=== PATIENT | male | born 1990 | race Caucasian/White ===

== ENCOUNTER 2017-04-24 11:33 | Emergency (ER) | payer BC ==
--- NOTE | 2017-04-24 12:20 | Emergency Department Report ---
Chief Complaint: Headache Stated Complaint: LIGHTHEADED/NAUSEA Time Seen by Provider: 04/24/17 12:18 - HPI History of Present Illness: PT c/o headache since yesterday. PT states today he was at work and he felt lightheaded. - ROS Review of Systems: + nausea - fever - Exam Physical Exam: PT is alert and appropriate in triage gcs 15 MSE screening note: Focused history and physical exam performed. Due to findings the following was ordered: labs ED Disposition for MSE Condition: Stable
[2017-04-24 12:22] VITALS: BP 141/66
--- NOTE | 2017-04-24 12:55 | Cat Scan Report ---
CT HEAD WITHOUT CONTRAST INDICATION: Headache, lightheadedness. COMPARISON: None similar at this institution. FINDINGS: Noncontrast head CT demonstrates normal ventricles and sulci without acute or recent infarct, hemorrhage, mass effect or midline shift. No abnormal extra-axial fluid collections. Posterior fossa structures and basilar cisterns appear within normal limits. Approximately 1 cm right sphenoid sinus mucous retention cyst laterally partially imaged. Approximately 0.7 cm left frontoethmoid mucus retention cyst as well. Clear remainder imaged paranasal sinuses and mastoid air cells. Intact calvarium. Normal overlying scalp soft tissues. CONCLUSION: No acute intracranial CT abnormality, as described. Thank you for the opportunity to participate in this patient's care.
[2017-04-24 12:57] LABS: Basophils % (Auto) 1.2 % (0.0-1.8); Eosinophils % (Auto) 4.8 % (0.0-4.3); Hematocrit 42.4 % (35.5-45.6); Hemoglobin 14.3 gm/dl (11.8-15.2); Mean Corpuscular HGB Conc 34 % (32-34); Mean Corpuscular Hemoglobin 30 pg (28-32); Mean Corpuscular Volume 88 fl (84-94); Platelet Count 240 K/mm3 (140-440); Red Blood Count 4.82 M/mm3 (3.65-5.03); Red Cell Distribution Width 13.6 % (13.2-15.2); White Blood Count 4.6 K/mm3 (4.5-11.0)
[2017-04-24 13:16] LABS: Alanine Aminotransferase 18 units/L (7-56); Albumin 4.2 g/dL (3.9-5); Albumin/Globulin Ratio 1.4 %; Alkaline Phosphatase 57 units/L (35-129); Anion Gap 16 mmol/L; BUN/Creatinine Ratio 8.46; Blood Urea Nitrogen 11 mg/dL (9-20); Carbon Dioxide 26 mmol/L (22-30); Chloride 100.1 mmol/L (98-107); Creatine Kinase 831 units/L (55-170); Glucose 86 mg/dL (75-100); Potassium 4.4 mmol/L (3.6-5.0); Sodium 138 mmol/L (137-145); Total Protein 7.3 g/dL (6.3-8.2)
--- NOTE | 2017-04-24 13:51 | Emergency Department Report ---
ED Headache HPI - General Chief Complaint: Nausea/Vomiting/Diarrhea Stated Complaint: LIGHTHEADED/NAUSEA Time Seen by Provider: 04/24/17 12:18 Source: patient Exam Limitations: no limitations - History of Present Illness Initial Comments: Patient reports lightheaded, nausea and headache that started two days ago Timing/Duration: constant Quality: moderate Head Injury Location: frontal Recent Head Trauma: other (none) Modifying Factors: improves with: rest. worse with: exposure to light, medication, movement Associated Symptoms: nausea/vomiting. denies: confusion, fatigue, facial pain, fever/chills, flushing, loss of consciousness, nasal congestion, nasal drainage , numbness in legs/feet, rash, seizures, sinus infection, stiff neck, vision changes, weakness Allergies/Adverse Reactions: Allergies No Known Allergies Allergy (Unverified 04/24/17 12:18) Home Medications: Ambulatory Orders Fluticasone [Flonase] 1 spray NS QDAY #1 bottle 04/24/17 Ibuprofen [Motrin 600 MG tab] 600 mg PO Q8H PRN #30 tablet 04/24/17 Loratadine [Claritin] 10 mg PO DAILY #15 tablet 04/24/17 ED Review of Systems ROS: Stated complaint: LIGHTHEADED/NAUSEA Other details as noted in HPI Constitutional: denies: chills, diaphoresis, fever, malaise, weakness Eyes: denies: eye pain, eye discharge ENT: denies: ear pain, throat pain, dental pain Respiratory: denies: cough, orthopnea, shortness of breath, SOB with exertion, SOB at rest, stridor, wheezing Cardiovascular: denies: chest pain, palpitations, dyspnea on exertion, orthopnea , edema, syncope, paroxysmal nocturnal dyspnea Gastrointestinal: nausea. denies: abdominal pain, vomiting, diarrhea, constipation Genitourinary: denies: urgency, dysuria Musculoskeletal: denies: back pain, joint swelling, arthralgia Skin: denies: rash, lesions Neurological: headache. denies: weakness, numbness, paresthesias, confusion Psychiatric: denies: anxiety, depression Hematological/Lymphatic: denies: easy bleeding, easy bruising, swollen glands ED Past Medical Hx - Past Medical History Previous Medical History?: No - Surgical History Past Surgical History?: No - Social History Smoking Status: Never Smoker Substance Use Type: None - Medications Home Medications: Home Medications Medication Instructions Recorded Confirmed Last Taken Type Fluticasone [Flonase] 1 spray NS QDAY #1 bottle 04/24/17 Unknown Rx Ibuprofen [Motrin 600 MG tab] 600 mg PO Q8H PRN #30 tablet 04/24/17 Unknown Rx Loratadine [Claritin] 10 mg PO DAILY #15 tablet 04/24/17 Unknown Rx ED Physical Exam - General Limitations: No Limitations General appearance: alert, in no apparent distress - Head Head exam: Present: atraumatic, normocephalic, normal inspection - Eye Eye exam: Present: normal appearance, PERRL, EOMI Pupils: Present: normal accommodation - ENT ENT exam: Present: normal exam, normal orophraynx, mucous membranes moist, TM's normal bilaterally, normal external ear exam, other (nasal turbinates pale and boggy). Absent: mucous membranes dry - Neck Neck exam: Present: normal inspection, full ROM. Absent: tenderness, meningismus, lymphadenopathy, thyromegaly - Respiratory Respiratory exam: Present: normal lung sounds bilaterally. Absent: respiratory distress, wheezes, rales, rhonchi, stridor, chest wall tenderness, accessory muscle use, decreased breath sounds, prolonged expiratory - Cardiovascular Cardiovascular Exam: Present: regular rate, normal rhythm, normal heart sounds. Absent: systolic murmur, diastolic murmur, rubs, gallop - GI/Abdominal GI/Abdominal exam: Present: soft, normal bowel sounds. Absent: distended, tenderness, guarding, rebound, rigid - Extremities Exam Extremities exam: Present: normal inspection, full ROM, normal capillary refill. Absent: tenderness, pedal edema, joint swelling, calf tenderness - Back Exam Back exam: Present: normal inspection, full ROM. Absent: CVA tenderness (R), CVA tenderness (L) - Neurological Exam Neurological exam: Present: alert, oriented X3, CN II-XII intact, normal gait, reflexes normal. Absent: motor sensory deficit - Psychiatric Psychiatric exam: Present: normal affect, normal mood. Absent: depressed, agitated - Skin Skin exam: Present: warm, dry, intact, normal color. Absent: rash ED Course Vital Signs 04/24/17 12:19 Temperature 98.7 F Pulse Rate 74 Respiratory 16 Rate Blood Pressure 141/66 O2 Sat by Pulse 100 Oximetry - Reevaluation(s) Reevaluation #1: 04/24/17 13:48 laboratory and radiology studies ordered ED Medical Decision Making - Lab Data Result diagrams: 04/24/17 12:40 04/24/17 12:40 Lab Results 04/24/17 04/24/17 04/24/17 Range/Units 12:40 12:40 12:40 WBC 4.6 (4.5-11.0) K/mm3 RBC 4.82 (3.65-5.03) M/mm3 Hgb 14.3 (11.8-15.2) gm/dl Hct 42.4 (35.5-45.6) % MCV 88 (84-94) fl MCH 30 (28-32) pg MCHC 34 (32-34) % RDW 13.6 (13.2-15.2) % Plt Count 240 (140-440) K/mm3 Lymph % (Auto) 37.6 H (13.4-35.0) % [place] % (Auto) 8.9 H (0.0-7.3) % Eos % (Auto) 4.8 H (0.0-4.3) % Baso % (Auto) 1.2 (0.0-1.8) % Lymph # 1.7 (1.2-5.4) K/mm3 [place] # 0.4 (0.0-0.8) K/mm3 Eos # 0.2 (0.0-0.4) K/mm3 Baso # 0.1 (0.0-0.1) K/mm3 Seg Neutrophils % 47.5 (40.0-70.0) % Seg Neutrophils # 2.2 (1.8-7.7) K/mm3 Sodium 138 (137-145) mmol/L Potassium 4.4 (3.6-5.0) mmol/L Chloride 100.1 (98-107) mmol/L Carbon Dioxide 26 (22-30) mmol/L Anion Gap 16 mmol/L BUN 11 (9-20) mg/dL Creatinine 1.3 (0.8-1.5) mg/dL Estimated GFR > 60 ml/min BUN/Creatinine Ratio 8.46 % Glucose 86 (75-100) mg/dL Calcium 9.0 (8.4-10.2) mg/dL Magnesium 1.90 (1.7-2.3) mg/dL Total Bilirubin 0.40 (0.1-1.2) mg/dL AST 32 (5-40) units/L ALT 18 (7-56) units/L Alkaline Phosphatase 57 (35-129) units/L Total Creatine Kinase 831 H (55-170) units/L Total Protein 7.3 (6.3-8.2) g/dL Albumin 4.2 (3.9-5) g/dL Albumin/Globulin Ratio 1.4 % Vital Signs 04/24/17 12:19 Temperature 98.7 F Pulse Rate 74 Respiratory 16 Rate Blood Pressure 141/66 O2 Sat by Pulse 100 Oximetry - Radiology Data Radiology results: image reviewed CT HEAD WITHOUT CONTRAST INDICATION: Headache, lightheadedness. COMPARISON: None similar at this institution. FINDINGS: Noncontrast head CT demonstrates normal ventricles and sulci without acute or recent infarct, hemorrhage, mass effect or midline shift. No abnormal extra-axial fluid collections. Posterior fossa structures and basilar cisterns appear within normal limits. Approximately 1 cm right sphenoid sinus mucous retention cyst laterally partially imaged. Approximately 0.7 cm left frontoethmoid mucus retention cyst as well. Clear remainder imaged paranasal sinuses and mastoid air cells. Intact calvarium. Normal overlying scalp soft tissues. CONCLUSION: No acute intracranial CT abnormality, as described. - Medical Decision Making During the course of ED, laboratory and radiology studies were ordered. The imaging study revealed no acute intracranial CT abnormality, however incidental findings of an approximately 1 cm right sphenoid sinus mucous retention cyst laterally partially imaged. Patient reports nausea has resolved. He was sent home with prescriptions for Ibuprofen, Flonase and Claritin, instructed to follow up with the selective referral given at discharge, he verbalized understanding - Differential Diagnosis Sinusitis, Headache, Nausea Critical care attestation.: If time is entered above; I have spent that time in minutes in the direct care of this critically ill patient, excluding procedure time. ED Disposition Clinical Impression: Sinusitis Qualifiers: Sinusitis location: sphenoidal Chronicity: acute Recurrence: not specified as recurrent Qualified Code(s): J01.30 - Acute sphenoidal sinusitis, unspecified Disposition: DC-01 TO HOME OR SELFCARE Is pt being admited?: No Does the pt Need Aspirin: No Condition: Stable Instructions: Sinusitis (ED) Additional Instructions: Take medication as directed. Follow up with the selective referral given at discharge. Drink plenty of fluids in order to maintain hydration Prescriptions: Fluticasone [Flonase] 1 spray NS QDAY #1 bottle Ibuprofen [Motrin 600 MG tab] 600 mg PO Q8H PRN #30 tablet PRN Reason: Pain Loratadine [Claritin] 10 mg PO DAILY #15 tablet Referrals: PRIMARY CARE, [Primary Care Provider] - 3-5 Days [facility] [Outside] - 3-5 Days Forms: Work/School Release Form(ED) Time of Disposition: 13:55
== END 2017-04-24 14:01 | disposition home or self-care (01) ==
LOC: ED 11:33
DX: J01.30 Acute sphenoidal sinusitis, unspecified (principal)
CPT/HCPCS: 36415; 70450; 80053; 82550; 83735; 85025